=== PATIENT | female | born 1985 | race Two or more races ===

== ENCOUNTER 2018-01-02 23:54 | Emergency (ER) | payer OTHER ==
[2018-01-03 00:01] VITALS: BP 110/59
[2018-01-03 02:55] LABS: ABS Basophils 0 10^3/ul (0-0.2); ABS Eosinophils 0.2 10^3/ul (0-0.6); ABS Lymphocytes 2.3 10^3/ul (1.0-4.8); ABS Neutrophils 8.5 10^3/ul (1.5-7.7); ABS Nucleated RBC 0 10^3/ul; Eosinophil % 1.6 % (0-6); Hematocrit 34 % (35-47); Hemoglobin 11.6 g/dl (12.0-16.0); Lymphocyte % 19.1 % (25-47); Mean Corpuscular HGB Conc 34 g/dl (31-36); Mean Corpuscular Hemoglobin 30 pg (27-31); Mean Corpuscular Volume 87 fL (80-97); Mean Platelet Volume 7.8 um3 (7.4-10.4); Nucleated Red Blood Cells % 0.1; Platelet Count 247 10^3/ul (150-450); Red Blood Count 3.93 10^6/ul (4.0-5.4); Red Cell Distribution Width 13 % (10.5-15); White Blood Count 12.1 10^3/ul (3.5-10.8)
[2018-01-03 03:24] LABS: EGFR Non-African American 129.2 (>60)
[2018-01-03 03:52] LABS: Urine Appearance Clear; Urine Blood Negative (Negative); Urine Color Straw; Urine Ketones Negative (Negative); Urine Protein Negative (Negative); Urine Specific Gravity 1.003 (1.010-1.030); Urine Urobilinogen Negative (Negative)
--- NOTE | 2018-01-03 04:45 | ED ---
Jean Claude Zazueta Abhishek, scribed for Blanca Rodgers MD on 01/03/18 at 0425 . GI/ HPI - HPI Summary HPI Summary: The pt is a 32 y/o Female presenting to the [facility] – [place] with a chief complaint of vaginal "spotting" since 3 days ago. Pt also reports right shoulder pain which is chronic. She states that she is 7 weeks into her first . She was referred to the ED by [facility]. Pt denies abd cramping and reports pain in the pelvic area. The pain is aggravated by walking. - History of Current Complaint Chief Complaint: EDVaginalBleeding Time Seen by Provider: 01/03/18 02:14 Stated Complaint: 7 WKS PREG/CRAMPING Hx Obtained From: Patient Timing: Constant, Lasting Days - 3 days Pain Intensity: 7 Associated Signs and Symptoms: Positive: Other: - Vaginal "spotting" - Allergy/Home Medications Allergies/Adverse Reactions: Allergies Allergy/AdvReac Type Severity Reaction Status Date / Time No Known Allergies Allergy Verified 01/03/18 00:01 PMH/Surg Hx/FS Hx/Imm Hx Sensory History: Denies: Hx Legally Blind, Hx Deafness Opthamlomology History: Denies: Hx Legally Blind Infectious Disease History: No Infectious Disease History: Denies: Traveled Outside the [place] in Last 30 Days - Family History Known Family History: Negative: Cardiac Disease, Diabetes - Social History Occupation: Employed Full-time Lives: With Family Alcohol Use: None Substance Use Type: Reports: None Smoking Status (MU): Never Smoked Tobacco Review of Systems Constitutional: Negative Eyes: Negative ENT: Negative Cardiovascular: Negative Gastrointestinal: Other - Negative abd cramping Genitourinary: Other - Vaginal "spotting" Musculoskeletal: Other - right shoulder pain; pelvic pain Skin: Negative Neurological: Negative Psychological: Normal All Other Systems Reviewed And Are Negative: Yes Physical Exam - Summary Physical Exam Summary: VITAL SIGNS: Reviewed. GENERAL: ~Patient is a well-developed and nourished (FEMALE) who is lying comfortable in the stretcher. Patient is not in any acute respiratory distress. HEAD AND FACE: No signs of trauma. No ecchymosis, hematomas or skull depressions. No sinus tenderness. EYES: PERRLA, EOMI x 2, No injected conjunctiva, no nystagmus. EARS: Hearing grossly intact. Ear canals and tympanic membranes are within normal limits. MOUTH: Oropharynx within normal limits. NECK: Supple, trachea is midline, no adenopathy, no JVD, no carotid bruit, no c- spine tenderness, neck with full ROM. CHEST: Symmetric, no tenderness at palpation LUNGS: Clear to auscultation bilaterally. No wheezing or crackles. CVS: Regular rate and rhythm, S1 and S2 present, no murmurs or gallops appreciated. ABDOMEN: right pelvic tenderness EXTREMITIES: FROM in all major joints, no edema, no cyanosis or clubbing. NEURO: Alert and oriented x 3. No acute neurological deficits. Speech is normal and follows commands. SKIN: Dry and warm Triage Information Reviewed: Yes Vital Signs On Initial Exam: Initial Vitals Temp Pulse Resp BP Pulse Ox 97.2 F 65 16 110/59 99 01/02/18 23:59 01/02/18 23:59 01/02/18 23:59 01/02/18 23:59 01/02/18 23:59 Vital Signs Reviewed: Yes Diagnostics - Vital Signs Vital Signs Temp Pulse Resp BP Pulse Ox 01/02/18 23:59 97.2 F 65 16 110/59 99 - Laboratory Lab Results: Lab Results 01/03/18 01/03/18 Range/Units 02:44 02:44 WBC 12.1 H (3.5-10.8) 10^3/ul RBC 3.93 L (4.0-5.4) 10^6/ul Hgb 11.6 L (12.0-16.0) g/dl Hct 34 L (35-47) % MCV 87 (80-97) fL MCH 30 (27-31) pg MCHC 34 (31-36) g/dl RDW 13 (10.5-15) % Plt Count 247 (150-450) 10^3/ul MPV 7.8 (7.4-10.4) um3 Neut % (Auto) 70.7 (38-83) % Lymph % (Auto) 19.1 L (25-47) % Camp % (Auto) 8.2 H (0-7) % Eos % (Auto) 1.6 (0-6) % Baso % (Auto) 0.4 (0-2) % Absolute Neuts (auto) 8.5 H (1.5-7.7) 10^3/ul Absolute Lymphs (auto) 2.3 (1.0-4.8) 10^3/ul Absolute Monos (auto) 1.0 H (0-0.8) 10^3/ul Absolute Eos (auto) 0.2 (0-0.6) 10^3/ul Absolute Basos (auto) 0 (0-0.2) 10^3/ul Absolute Nucleated RBC 0 10^3/ul Nucleated RBC % 0.1 Sodium 134 L (139-145) mmol/L Potassium 3.8 (3.5-5.0) mmol/L Chloride 105 (101-111) mmol/L Carbon Dioxide 24 (22-32) mmol/L Anion Gap 5 (2-11) mmol/L BUN 11 (6-24) mg/dL Creatinine 0.54 (0.51-0.95) mg/dL Est GFR ( Amer) 166.2 (>60) Est GFR (Non-Af Amer) 129.2 (>60) BUN/Creatinine Ratio 20.4 H (8-20) Glucose 93 (70-100) mg/dL Calcium 8.8 (8.6-10.3) mg/dL Total Bilirubin 0.20 (0.2-1.0) mg/dL AST 15 (13-39) U/L ALT 10 (7-52) U/L Alkaline Phosphatase 35 (34-104) U/L Total Protein 6.7 (6.4-8.9) g/dL Albumin 3.9 (3.2-5.2) g/dL Globulin 2.8 (2-4) g/dL Albumin/Globulin Ratio 1.4 (1-3) Beta HCG, Quant Pending Result Diagrams: 01/03/18 02:44 01/03/18 02:44 Lab Statement: Any lab studies that have been ordered have been reviewed, and results considered in the medical decision making process. - Ultrasound No standard instances Ultrasound Interpretation Completed By: Radiologist - There is an intrauterine gestation. The estimated gestational age is 8 weeks and zero days. cardiac activity is documented at 152 beats per minute. There is 2.9 cm left ovarian corpus luteum as per radiologist report. ED Physician has reviewed this radiology report. GIGU Course/Dx - Course Course Of Treatment: The pt is a 32 y/o female that is presenting to the [facility] a chief complaint of vaginal "spotting." The pt received a US in the [facility]. After further evaulation, lab work and blood work, the pt's dx will be threatened miscarriage. The pt will be discharged home. - Diagnoses Provider Diagnoses: Threatened miscarriage Discharge - Sign-Out/Discharge Documenting (check all that apply): Discharge - Home - Discharge Plan Condition: Stable Disposition: HOME Patient Education Materials: Threatened Miscarriage (ED) Referrals: Tammy Griffin [Primary Care Provider] - (Follow up with primary care physician within 1 to 2 days.) Additional Instructions: RETURN TO EMERGENCY DEPARTMENT FOR ANY NEW OR WORSENING SYMPTOMS The documentation as recorded by the Jean Claude cat Abhishek accurately reflects the service I personally performed and the decisions made by , Blanca Rodgers MD.
--- NOTE | 2018-01-03 07:43 | RAD ---
HISTORY: Pelvic cramping in a female COMPARISONS: None from this TECHNIQUE: Multiple transverse and longitudinal ultrasound images were obtained of the pelvis using grayscale, color flow, spectral and M-mode sonographic imaging. FINDINGS: UTERUS: The uterus is normal in shape, size, contour, and echotexture. GESTATION: There is a single live intrauterine gestation. The crown-rump length measures 1.2 cm yielding a gestational age of 7 weeks and 3 days. The mean gestational sac diameter measures 3.1 centimeters yielding a gestational age of 8 weeks and 3 days. cardiac motion is detected at a rate of 152 beats per minute. CUL-DE-SAC: There is no free fluid within the cul-de-sac. RIGHT OVARY: The right ovary measures 2.0 x 1.4 x 1.9 cm. LEFT OVARY: The left ovary measures 2.9 x 2.6 x 3.0 cm. Within the left ovary there is an anechoic and avascular structure measuring 2.2 x 1.9 x 2.1 cm most consistent with a corpus luteum. IMPRESSION: Single live intrauterine gestation with a crown-rump length yielding a gestational age of 7 weeks and 3 days.
== END 2018-01-03 04:30 | disposition home or self-care (01) ==
LOC: ED 23:54
DX: O20.0 Threatened abortion (principal); Z3A.08 8 weeks gestation of pregnancy
CPT/HCPCS: 36415; 76801; 80053; 81003; 84702; 85025; 86850; 86900; 86901; 99283

== ENCOUNTER 2018-07-16 09:38 | Emergency (ER) | payer OTHER ==
[2018-07-16 11:35] LABS: Urine Appearance Clear; Urine Blood Negative (Negative); Urine Color Straw; Urine Ketones Negative (Negative); Urine Protein Negative (Negative); Urine Red Blood Cell Trace(0-2/hpf) (Absent); Urine Specific Gravity 1.003 (1.010-1.030); Urine Urobilinogen Negative (Negative); Urine White Blood Cell 2+(11-20/hpf) (Absent)
--- NOTE | 2018-07-16 12:36 | RAD ---
Indication: Fall, abdominal injury. Real-time sonography of the was performed. There is a single intrauterine gestation in cephalic presentation. There is a posterior right lateral placenta without evidence of placenta previa. heart activity is noted at 143 bpm. movement is noted. Amniotic fluid index is 14.5. The cervix measures 3.8 cm and is unremarkable. The BPD measures 9.1 cm corresponding to gestational age of 37 weeks 0 days. Head circumference measures 32.0 cm corresponding to gestational age of 36 weeks 1 day. Abdominal circumference measures 30.4 cm corresponding to gestational age of 34 weeks 3 days. Femur length measures 6.8 cm corresponding to gestational age of 35 weeks 1 day. Estimated weight is 2569 g. HC/AC ratio is 1.05. IMPRESSION: Single intrauterine gestation with a gestational age of 35 weeks 3 days. Estimated weight is 2569 g. No placental abruption is noted.
[2018-07-16 13:13] VITALS: BP 112/55
--- NOTE | 2018-07-16 13:45 | ED ---
Adult Trauma - HPI Summary HPI Summary: Patient is an otherwise healthy 32-year-old female who is 35 weeks presenting to the ED after a mechanical fall. She states she feels she may have fallen onto her face as well as her belly. She has been feeling movement, denies any abdominal pain, denies any vaginal discharge or bleeding. She denies any urinary symptoms or back pain. She was ambulating well after the fall. She was concerned for demise. Her has been otherwise normal. - History of Current Complaint Chief Complaint: EDGeneral Stated Complaint: FALL Time Seen by Provider: 07/16/18 09:53 Hx Obtained From: Patient ?: No Mechanism of Injury: Direct Blow Ambulatory at the Scene: No Loss of Consciousness: no loss of consciousness Restraints: None Onset/Duration: Started Hours Ago Onset of Pain: Minutes Onset Severity: Moderate Current Severity: Mild Pain Intensity: 4 Pain Scale Used: 0-10 Numeric Location: Abdomen/Pelvis Aggravating Factor(s): Nothing Alleviating Factor(s): Nothing Associated Signs & Symptoms: Positive: Negative - Allergy/Home Medications Allergies/Adverse Reactions: Allergies Allergy/AdvReac Type Severity Reaction Status Date / Time No Known Allergies Allergy Verified 01/03/18 00:01 Home Medications: Home Medications Cholecalciferol TAB* [Vitamin D TAB*] 1,000 unit PO DAILY 07/16/18 [History Confirmed 07/16/18] Multivitamin [Once Daily] 1 tab PO DAILY 07/16/18 [History Confirmed 07/16/18] PMH/Surg Hx/FS Hx/Imm Hx Previously Healthy: Yes Sensory History: Denies: Hx Legally Blind, Hx Deafness Opthamlomology History: Denies: Hx Legally Blind - Immunization History Hx Pertussis Vaccination: No Immunizations Up to Date: Yes Infectious Disease History: No Infectious Disease History: Denies: Traveled Outside the [place] in Last 30 Days - Family History Known Family History: Negative: Cardiac Disease, Diabetes - Social History Occupation: Employed Full-time Lives: With Family Alcohol Use: None Hx Substance Use: No Substance Use Type: Reports: None Hx Tobacco Use: No Smoking Status (MU): Never Smoked Tobacco Review of Systems Constitutional: Negative Negative: Fever, Chills, Fatigue, Skin Diaphoresis Negative: Palpitations, Chest Pain Negative: Shortness Of Breath, Cough Negative: Abdominal Pain, Vomiting, Diarrhea, Nausea Negative: Arthralgia, Myalgia Positive: Other - abrasion to the R catholic Neurological: Negative Psychological: Normal All Other Systems Reviewed And Are Negative: Yes Physical Exam Triage Information Reviewed: Yes Vital Signs On Initial Exam: Initial Vitals Temp Pulse Resp BP Pulse Ox 98.4 F 80 20 109/64 100 07/16/18 09:44 07/16/18 09:44 07/16/18 09:44 07/16/18 09:44 07/16/18 09:44 Vital Signs Reviewed: Yes Appearance: Positive: Well-Appearing, Well-Nourished Skin: Positive: Warm, Skin Color Reflects Adequate Perfusion, Other - abrasion to the R side of the face without pain on palpation - no tenderness to the head Head/Face: Positive: Normal Head/Face Inspection Eyes: Positive: EOMI, ERICK, Conjunctiva Clear Neck: Positive: Supple, No Lymphadenopathy Respiratory/Lung Sounds: Positive: Clear to Auscultation, Breath Sounds Present Cardiovascular: Positive: RRR, Pulses are Symmetrical in both Upper and Lower Extremities Musculoskeletal: Positive: Normal, Strength/ROM Intact Neurological: Positive: Speech Normal Psychiatric: Positive: Normal, Affect/Mood Appropriate AVPU Assessment: Alert Diagnostics - Vital Signs Vital Signs Temp Pulse Resp BP Pulse Ox 07/16/18 13:12 98.2 F 82 16 112/55 99 07/16/18 11:45 75 102/55 98 07/16/18 11:17 88 99 07/16/18 11:16 89 113/72 100 07/16/18 10:45 81 106/58 99 07/16/18 10:19 76 114/61 99 07/16/18 10:00 77 100 07/16/18 09:46 77 100 07/16/18 09:45 74 109/64 100 07/16/18 09:44 98.4 F 80 20 109/64 100 - Laboratory Lab Results: Lab Results 07/16/18 Range/Units 11:12 Urine Color Straw Urine Appearance Clear Urine pH 7.0 (5-9) Ur Specific Lula 1.003 L (1.010-1.030) Urine Protein Negative (Negative) Urine Ketones Negative (Negative) Urine Blood Negative (Negative) Urine Nitrate Negative (Negative) Urine Bilirubin Negative (Negative) Urine Urobilinogen Negative (Negative) Ur Leukocyte Esterase 3+ A (Negative) Urine WBC (Auto) 2+(11-20/hpf) A (Absent) Urine RBC (Auto) Trace(0-2/hpf) (Absent) Ur Squamous Epith Cells Present A (Absent) Urine Bacteria 3+ A (Absent) Urine Glucose Negative (Negative) Lab Statement: Any lab studies that have been ordered have been reviewed, and results considered in the medical decision making process. Adult Trauma Course/Dx - Course Course Of Treatment: The patient is evaluated for mechanical fall. She is 35 weeks . heart tones obtained immediately on arrival which are 140. nonstress test obtained. US obtained which shows: Normal gestation 35 weeks and 3 days. On physical examination, there is a small abrasion to the right cheek and the left front tooth is chipped. No other signs of trauma to the mouth. No other signs of trauma otherwise. Abdomen is appropriate size for 35 week gestation. She is ambulating well. Denies any urinary symptoms. UA obtained which shows no RBCs. It does show a UTI, however she is declining antibiotics at this time and will defer to her doctor for treatment. She home with follow-up to her [employer]. will be discharged - Diagnoses Differential Diagnosis/HQI/PQRI: Positive: Other - trauma, abrasion Provider Diagnoses: Fall Discharge - Sign-Out/Discharge Documenting (check all that apply): Patient Departure - Discharge Plan Condition: Stable Disposition: HOME Referrals: Tammy Griffin [Primary Care Provider] - Additional Instructions: Please follow up with OBGYN as scheduled If you develop any pain or symptoms, return to the ED - Billing Disposition and Condition Condition: STABLE Disposition: Home
== END 2018-07-16 13:12 | disposition home or self-care (01) ==
LOC: ED 09:38
DX: O26.893 Other specified pregnancy related conditions, third trimester (principal); S02.5XXA Fracture of tooth (traumatic), initial encounter for closed fracture; S00.81XA Abrasion of other part of head, initial encounter; Z3A.35 35 weeks gestation of pregnancy; W19.XXXA Unspecified fall, initial encounter; Y92.9 Unspecified place or not applicable
CPT/HCPCS: 76815; 81003; 81015; 87086; 99283

== ENCOUNTER 2021-09-08 01:56 | Inpatient (IN) ==
[2021-09-08] MEDS ORDERED: Oxytocin in LR 20 UNITS/1,000 ML BAG IVPB ONE (04:54)
[2021-09-08 05:04] LABS: ABS Lymphocytes 1.3 10^3/ul (1.0-4.8); ABS Monocytes 0.6 10^3/ul (0-0.8); ABS Neutrophils 8.2 10^3/ul (1.5-7.7); Eosinophil % 0.4 %; Hematocrit 37 % (35-47); Hemoglobin 12.8 g/dL (12.0-16.0); Lymphocyte % 12.7 %; Mean Corpuscular HGB Conc 35 g/dL (31-36); Mean Corpuscular Hemoglobin 30 pg (27-31); Mean Corpuscular Volume 87 fL (80-97); Mean Platelet Volume 9.2 fL (7.4-10.4); Platelet Count 180 10^3/uL (150-450); Red Blood Count 4.27 10^6 /uL (3.70-4.87); Red Cell Distribution Width 21 % (10-15); White Blood Count 10.2 10^3/uL (3.5-10.8)
[2021-09-08 05:12] LABS: Urine Benzodiazepine Screen None Detected (None Detect); Urine Opiates Screen None Detected (None Detect)
[2021-09-08] MEDS ORDERED: Lactated Ringers 1000 ml BAG 1,000 ML IV ONE ×2 (05:28→06:56)
[2021-09-08] MEDS ORDERED: Buffered Lidocaine 1% SYRIN 1 ml INTRADERM ONE (05:28)
[2021-09-08] MEDS ORDERED: OBEPIDURAL 250 ML EPIDURAL ONE (05:33)
[2021-09-08] MEDS: Lactated Ringers 1000 ml BAG 1,000 ML IV SCH ×2 (06:17→08:46)
[2021-09-08] MEDS ORDERED: EPHEDrine (Pressors) 50 MG/ML VIAL IV PUSH PRN (06:56)
[2021-09-08] MEDS ORDERED: Sodium Citrate/Citric Acid LIQ 15 ML UDC PO PRN (06:56)
[2021-09-08] MEDS ORDERED: Phenylephrine 40 mcg/mL 10mL (400mcg) SYRINGE IV PUSH PRN (06:56)
[2021-09-08] MEDS ORDERED: Lactated Ringers 1000 ml BAG 500 ML IV PRN (06:56)
[2021-09-08] MEDS ORDERED: Lactated Ringers 1000 ml BAG 1,000 ML IV SCH ×2 (07:00→21:00)
[2021-09-08] MEDS ORDERED: OBEPIDURAL 250 ML EPIDURAL SCH (07:00)
[2021-09-08 08:50] LABS: Urine Appearance Turbid; Urine Bacteria Absent (Absent); Urine Bilirubin Negative (Negative); Urine Blood 3+ (Negative); Urine Glucose Negative (Negative); Urine Ketones Trace (Negative); Urine Nitrite Negative (Negative); Urine Protein 1+(30 mg/dL) (Negative); Urine Red Blood Cell 3+(>10/hpf) (Absent); Urine Specific Gravity 1.015 (1.002-1.030); Urine Squamous Epithelial Cell Present (Absent); Urine Urobilinogen Negative (Negative); Urine White Blood Cell Absent (Absent)
[2021-09-08 08:56] LABS: Urine Color Red
[2021-09-08 10:48] LABS: Rapid COVID-19 Molecular Undetected (Undetected)
[2021-09-08] MEDS ORDERED: Gentamicin ADULT per pharmacy 1 NOTE MISC FOLLOW UP PRN (18:10)
[2021-09-08] MEDS ORDERED: NS 0.9% 100 ml BAG 0 ML ONE (18:17)
[2021-09-08] MEDS: Ampicillin ADVAN 2 GM in NS 0.9% 100 ml BAG 100 ML IVPB SCH (18:31)
[2021-09-08] MEDS ORDERED: NS 0.9% IVPB ONE (19:00)
[2021-09-08] MEDS ORDERED: GENTAMICIN ADULT IVPB ONE (19:00)
[2021-09-08] MEDS ORDERED: Glycerin ADULT 2.4 gm SUPP PR PRN (20:23)
[2021-09-08] MEDS ORDERED: Oxytocin in LR 20 UNITS/1,000 ML BAG IVPB SCH ×2 (21:00)
[2021-09-09] MEDS: Hydrocortisone 1% Oint(NF) 30 GM TUBE TOPICAL SCH ×2 (00:41→21:03)
[2021-09-09] MEDS: Witch Hazel PAD JAR TOPICAL PRN (00:41)
[2021-09-09] MEDS: Dibucaine 1% OINT 28.35 GM TUBE PR PRN ×2 (00:41→21:02)
[2021-09-09] MEDS: Ampicillin ADVAN 2 GM in NS 0.9% 100 ml BAG 100 ML IVPB SCH (00:42)
[2021-09-09 07:26] LABS: ABS Basophils 0.1 10^3/ul (0-0.2); ABS Lymphocytes 1.9 10^3/ul (1.0-4.8); ABS Monocytes 0.9 10^3/ul (0-0.8); ABS Neutrophils 12.9 10^3/ul (1.5-7.7); Eosinophil % 0.2 %; Hematocrit 30 % (35-47); Hemoglobin 9.8 g/dL (12.0-16.0); Lymphocyte % 11.9 %; Mean Corpuscular HGB Conc 33 g/dL (31-36); Mean Corpuscular Hemoglobin 29 pg (27-31); Mean Corpuscular Volume 88 fL (80-97); Mean Platelet Volume 9.2 fL (7.4-10.4); Platelet Count 154 10^3/uL (150-450); Red Cell Distribution Width 21 % (10-15); White Blood Count 15.7 10^3/uL (3.5-10.8)
[2021-09-09] MEDS ORDERED: Lidocaine 1% VIAL 10 MG/ML VIAL ONE (16:27)
[2021-09-10] MEDS: Hydrocortisone 1% Oint(NF) 30 GM TUBE TOPICAL SCH ×2 (06:14→22:55)
[2021-09-10] MEDS: Witch Hazel PAD JAR TOPICAL PRN (16:58)
[2021-09-10] MEDS: Ampicillin ADVAN 2 GM in NS 0.9% 100 ml BAG 100 ML IVPB SCH (23:01)
[2021-09-11] MEDS: Hydrocortisone 1% Oint(NF) 30 GM TUBE TOPICAL SCH ×2 (00:14→21:00)
[2021-09-12] MEDS: Hydrocortisone 1% Oint(NF) 30 GM TUBE TOPICAL SCH ×3 (07:47→14:11)
[2021-09-12 08:33] VITALS: BP 127/63
[2021-09-12] MEDS: Witch Hazel PAD JAR TOPICAL PRN (16:27)
== END 2021-09-12 20:13 | disposition home or self-care (01) | DRG 560 ==
LOC: MCHOBOUT 01:56 → MCHOB 04:33
PROVIDERS: ADMIT Obstetrics & Gynecology; ATTEND Midwife